=== PATIENT | male | born 2000 | race Caucasian/White ===

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

== ENCOUNTER 2019-05-25 18:11 | Emergency (ER) | payer BC, MEDICAID ==
--- NOTE | 2019-05-25 18:14 | EDM.PDOC ---
ED HPI GENERAL MEDICAL PROBLEM - General Stated Complaint: CHEST PRESSURE, AND ALSO RT LEG PAIN Time Seen by Provider: 05/25/19 18:13 Source of Information: Reports: Patient History Limitations: Reports: No Limitations - History of Present Illness INITIAL COMMENTS - FREE TEXT/NARRATIVE: HISTORY AND PHYSICAL: History of present illness: Patient is a 19-year-old male presenting to the emergency room for complaints of "chest pain". Patient states that he is "had chest pain on and off for about one week. Patient states his chest pain worsened today, however he does not have chest pain now. Patient denies aggravating or alleviating factors. Patient also mentions that he also has lateral muscle pain on the right leg that has been "on and off" for the past week. Patient ambulated to the ER without deficits. Patient denies any fever, chills, headache, change in vision, syncope or near syncope. Denies current chest pain, back pain, shortness of breath or cough. Denies any abdominal pain, nausea, vomiting, diarrhea, constipation or dysuria. Has not noted any blood in urine or stool. Patient has been eating and drinking appropriately. Review of systems: As per history of present illness and below otherwise all systems reviewed and negative. Past medical history: As per history of present illness and as reviewed below otherwise noncontributory. Surgical history: As per history of present illness and as reviewed below otherwise noncontributory. Social history: See social history for further information Family history: As per history of present illness and as reviewed below otherwise noncontributory. Physical exam: General: The well-nourished and well-developed 19-year-old male. Alert and oriented. Nontoxic in appearance and in no acute distress. Vital signs have been reviewed by me. HEENT: Atraumatic, normocephalic, pupils equal and reactive bilaterally, negative for conjunctival pallor or scleral icterus, mucous membranes moist, TMs normal bilaterally, throat clear, neck supple, nontender, trachea midline. No drooling or trismus noted. No meningeal signs. No hot potato voice noted. Lungs: Clear to auscultation, breath sounds equal bilaterally, chest nontender. Heart: S1S2, regular rate and rhythm without overt murmur Abdomen: Soft, nondistended, nontender. Negative for masses or hepatosplenomegaly. Negative for costovertebral tenderness. Skin: Intact, warm, dry. No lesions or rashes noted. Extremities: Atraumatic, moves all extremities per self without difficulty or deficits, negative for cords or calf pain. There is no erythema or edema to the right lower leg. Neurovascular unremarkable. Neuro: Awake, alert, oriented. Cranial nerves II through XII unremarkable. Cerebellum unremarkable. Motor and sensory unremarkable throughout. Exam nonfocal. Notes: Patient ambulated into the ER on his without deficits. There is no erythema or edema to the right lower extremity. Pain free at this time. His vital signs remain stable. We discussed the need for follow-up. Supportive care measures were reviewed and discussed. Voices understanding and is agreeable to plan of care. Denies any further questions or concerns at this time. Diagnostics: CXR, EKG Therapeutics: None Prescription: None Impression: Chest pain, nonspecific Plan: 1. Please use Tylenol and/or Ibuprofen as needed for pain and fever management. 2. Get plenty of Rest. Encourage fluids to prevent dehydration. 3. Please follow up with your primary care provider. Return to the ED as needed as discussed. Definitive disposition and diagnosis as appropriate pending reevaluation and review of above. Chest Pain Score (Numeric/FACES): 0 Right Lower Leg Pain Score (Numeric/FACES): 4 - Related Data Allergies Allergy/AdvReac Type Severity Reaction Status Date / Time No Known Allergies Allergy Verified 05/25/19 18:17 Home Meds: Home Meds buPROPion [Wellbutrin] 100 mg PO BID 03/30/18 [History] Divalproex Sodium 125 mg PO DAILY 07/09/18 [History] Past Medical History - Past Health History Medical/Surgical History: Denies Medical/Surgical History HEENT History: Reports: Impaired Vision Other HEENT History: wears glasses Cardiovascular History: Reports: None Respiratory History: Reports: None Gastrointestinal History: Reports: None Genitourinary History: Reports: None Musculoskeletal History: Reports: Fracture Neurological History: Reports: None Psychiatric History: Reports: Anxiety, Depression, Suicidal Ideation, Other ( See Below) Other Psychiatric History: 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 ED EXAM, GENERAL - Physical Exam Exam: See Below (See dictation) Course - Vital Signs Last Recorded V/S: Last Vital Signs Temp 96.0 F 05/25/19 18:15 Pulse 89 05/25/19 18:15 Resp 18 05/25/19 18:15 BP 149/84 H 05/25/19 18:15 Pulse Ox 95 05/25/19 18:15 - Orders/Labs/Meds Orders: Active Orders 24 hr Category Date Time Status EKG Documentation Completion [RC] STAT Care 05/25/19 18:14 Active Chest 2V [CR] Stat Exams 05/25/19 18:18 Ordered Departure - Departure Time of Disposition: 19:13 Disposition: Home, Self-Care 01 Clinical Impression: Nonspecific chest pain - Discharge Information Instructions: Nonspecific Chest Pain Referrals: PCP,Unknown [Primary Care Provider] - Additional Instructions: The following information is given to patients seen in the emergency department who are being discharged to home. This information is to outline your options for follow-up care. We provide all patients seen in our emergency department with a follow-up referral. The need for follow-up, as well as the timing and circumstances, are variable depending upon the specifics of your emergency department visit. If you don't have a primary care physician on staff, we will provide you with a referral. We always advise you to contact your personal physician following an emergency department visit to inform them of the circumstance of the visit and for follow-up with them and/or the need for any referrals to a consulting specialist. The emergency department will also refer you to a specialist when appropriate. This referral assures that you have the opportunity for follow-up care with a specialist. All of these measure are taken in an effort to provide you with optimal care, which includes your follow-up. Under all circumstances we always encourage you to contact your private physician who remains a resource for coordinating your care. When calling for follow-up care, please make the office aware that this follow-up is from your recent emergency room visit. If for any reason you are refused follow-up, please contact the [facility] Emergency Department at and asked to speak to the emergency department charge nurse. [facility] [address] [place] [address] [address] 1. Please use Tylenol and/or Ibuprofen as needed for pain and fever management. 2. Get plenty of Rest. Encourage fluids to prevent dehydration. 3. Please follow up with your primary care provider. Return to the ED as needed as discussed. - My Orders Last 24 Hours: My Active Orders 05/25/19 18:14 EKG Documentation Completion [RC] STAT 05/25/19 18:18 Chest 2V [CR] Stat - Assessment/Plan Last 24 Hours: My Active Orders 05/25/19 18:14 EKG Documentation Completion [RC] STAT 05/25/19 18:18 Chest 2V [CR] Stat
--- NOTE | 2019-05-25 19:13 | CR ---
INDICATION: chest tightness, rt leg pain CHEST, PA AND LATERAL Upright PA and lateral radiographs of the chest were performed. Comparison: No previous studies are currently available for comparison. The lungs appear clear and there are no pleural effusions. Heart size and pulmonary vasculature appear normal. Visualized bones show no significant findings. IMPRESSION: No acute intrathoracic abnormality identified. THERESA GAN MD [employer] Dictated by: Marcellus Gan MD @ 05/25/2019 19:11:44 (Electronically Signed)
[2019-05-25 19:20] VITALS: BP 161/88; PULSE 90
== END 2019-05-25 19:21 | disposition home or self-care (01) ==
LOC: MW.ED 18:11
DX: R07.9 Chest pain, unspecified (principal); E66.9 Obesity, unspecified; F32.9 Major depressive disorder, single episode, unspecified; Z68.42 Body mass index [BMI] 45.0-49.9, adult; Z79.899 Other long term (current) drug therapy
CPT/HCPCS: 71046; 71046-26; 93005; 99285-25

== ENCOUNTER 2020-12-20 21:09 | Emergency (ER) | payer BC ==
[2020-12-20] MEDS ORDERED: Ketorolac 15 MG/ML SDV IM ONE (21:18)
--- NOTE | 2020-12-20 21:41 | CR ---
Indication: Chest pain. Technique: AP portable view of the chest. Comparison: May 25, 2019. Findings: Heart is normal in size. The lungs are clear. No infiltrate, pleural effusion, or pneumothorax is identified. Impression: No acute cardiopulmonary process Dictated by Kari Ramos MD @ 12/20/2020 9:40:[address] Kari Ramos @ Dec 20 2020 9:40PM
[2020-12-20] MEDS ORDERED: Alum Hydrox/Mag Hydrox/Simeth 15 ML, Lidocaine 2% 5 ML PO ONE ×2 (21:43)
--- NOTE | 2020-12-20 21:57 | EDM.PDOC ---
ED HPI GENERAL MEDICAL PROBLEM - General Chief Complaint: Chest Pain Stated Complaint: CHEST PAIN, HIGH BP Time Seen by Provider: 12/20/20 21:17 - History of Present Illness INITIAL COMMENTS - FREE TEXT/NARRATIVE: CHIEF COMPLAINT(S): Chest pain HISTORY OF PRESENT ILLNESS: This is a 20-year-old man with a past medical history of obesity, depressive disorder, GERD who presents to the emergency department with chest pain. The patient states that he has been experiencing chest pain that was going on for approximately 1 week. He states that he was just seen by his primary care physician and started on blood pressure medications that he cannot recall and was told to do some exercise for which she has been doing this. He states that the pain is located in his left side of his chest and intermittent and is worsened after he eats. He describes the pain as sharp not any associated diaphoresis, nausea or vomiting. He denies any recent travel or recent surgery. He denies any street of DVT or PE. He denies any family history of early onset CAD, CHF or sudden onset at young age. He states that the pain seems to be exacerbated also when he walks. Stated he checked his blood pressure at home and it was elevated at 140 and now it is down to 120 so he was concerned about that also. He denies any shortness of breath or cough. He denies any fevers or chills. Denies any other symptoms. States that the pain resolves on its own. He denies any other aggravating factors. REVIEW OF SYSTEMS: Constitutional: Denies fever, chills. Eyes: Denies eye pain Ears, Nose, Mouth, & Throat: Denies earache Cardiovascular: For sharp chest pain respiratory: Denies shortness of breath Gastrointestinal: Denies Nausea, vomiting, diarrhea, hematochezia. Genitourinary: Denies hematuria Skin:Denies a rash MSK: Denies joint pain Neurological: Denies blurred vision, numbness, tingling, weakness Psychiatric: Denies depression PAST MEDICAL HISTORY: As per history of present illness and as reviewed below otherwise noncontributory. SURGICAL HISTORY: As per history of present illness and as reviewed below otherwise noncontributory. SOCIAL HISTORY: As per history of present illness and as reviewed below ot herwise noncontributory. FAMILY HISTORY: As per history of present illness and as reviewed below otherwise noncontributory. EXAMINATION OF ORGAN SYSTEMS/BODY AREAS: Constitutional: Blood pressure was 146/83, heart rate 69, respiratory rate 18 with an oxygen saturation 98% on room air. Temperature 36.1 General: Overall well-appearing young man who is in no acute distress Psychiatric: Appropriate mood and affect. Eyes: No scleral icterus or conjunctival erythema ENMT: Moist mucous membranes. No pharyngeal erythema Cardiovascular: Regular, rate, and rhythm. No gallops, murmurs, or rubs. B ilateral upper extremity pulses symmetric and intact. No peripheral edema. No JVD. Respiratory: Lungs clear to auscultation bilaterally. No wheezes, rales, or rhonchi. Gastrointestinal: Soft, non-tender, non-distended. Normoactive bowel sounds Genitourinary: No suprapubic tenderness Musculoskeletal: Normal range of motion. Skin: No lesions or abrasions. Neurological: Alert, GCS 15 MEDICAL DECISION MAKING AND COURSE IN THE ED WITH INTERPRETATION/REVIEW OF DIAGNOSTIC STUDIES: This is a 20-year-old man with a past medical history of reflux disease, depressive disorder and hypertension presents to the emergency department with intermittent left-sided chest pain which is exacerbated by eating. We did obtain screening EKG which did not reveal any acute signs of ischemia. Patient is low risk for ACS given his age and risk factors. Therefore no cardiac work-up will be obtained. We will provide the patient with Toradol and a GI cocktail. Obtain a chest x-ray. I do believe this is likely secondary to his reflux disease versus gastritis. The radiological images were viewed by myself along with reading the report from the radiologist. Chest x-ray does not reveal any acute cardiopulmonary process. On reevaluation I did discuss results with patient. I did discuss with him at this time that I would like him to continue his antacid at home and that he should continue with his exercise. I did provide the patient with psychiatry follow-up. He states that he already has a therapist. I did discuss that he should follow-up with primary care physician regarding his blood pressure and reflux symptoms. He is to return for any new or worsening symptoms. He was amenable discharge at this time and had no further questions DISPOSITION: The patient was discharged home in stable condition. The patient will follow up with his primary care physician within 3 to 5 days CONDITION: Fair PROCEDURES: None FINAL IMPRESSION(S)/DIAGNOSES: 1. Acute atypical chest pain likely secondary to reflux disease Tre Juarez M.D. chest Pain Score (Numeric/FACES): 5 - Related Data Allergies Allergy/AdvReac Type Severity Reaction Status Date / Time No Known Allergies Allergy Verified 12/20/20 21:16 Home Meds: Home Meds . 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 Endocrine/Metabolic History: Reports: Obesity/BMI 30+ Hematologic History: Reports: None Oncologic (Cancer) History: Reports: None Dermatologic History: Reports: None - Infectious Disease History Infectious Disease History: Reports: None - Past Surgical History Head Surgeries/Procedures: Reports: None Male Surgical History: Reports: None Social & Family History - Family History Family Medical History: No Pertinent Family History - Caffeine Use Caffeine Use: Reports: None ED ROS GENERAL - Review of Systems Review Of Systems: See Below ED EXAM, GENERAL - Physical Exam Exam: See Below Course - Vital Signs Last Recorded V/S: Last Vital Signs Temp 36.1 C 12/20/20 21:17 Pulse 67 12/20/20 22:31 Resp 18 12/20/20 22:31 BP 140/85 12/20/20 22:31 Pulse Ox 95 12/20/20 22:31 - Orders/Labs/Meds Meds: Medications Discontinued Medications Generic Name Dose Route Start Last Admin Trade Name Freq PRN Reason Stop Dose Admin Al Hydroxide/Mg Hydroxide 15 0 ml 12/20/20 21:43 12/20/20 21:56 ml/ Lidocaine HCl 5 ml PO 12/20/20 21:44 20 each ONETIME ONE Administration Ketorolac Tromethamine 15 mg 12/20/20 21:18 12/20/20 21:56 Ketorolac 15 Mg/Ml Sdv IM 12/20/20 21:19 15 mg ONETIME ONE Administration Departure - Departure Time of Disposition: 21:56 Disposition: Home, Self-Care 01 Condition: Fair Clinical Impression: Gastritis - Discharge Information *PRESCRIPTION DRUG MONITORING PROGRAM REVIEWED*: No *COPY OF PRESCRIPTION DRUG MONITORING REPORT IN PATIENT JIMMY: No Instructions: Gastritis, Adult, [id number], Nonspecific Chest Pain, Adult, [id number] Referrals: Casey Andres MD [Primary Care Provider] - Forms: ED Department Discharge Additional Instructions: You evaluate today an emergent basis. At this time your chest x-ray and your rhythm strip of your heart were normal. You are relatively low risk for any heart issues given your age. Given that the pain is exacerbated by eating I do believe this is likely secondary to reflux disease or peptic ulcer disease, or gastritis. I recommend that you continue taking your antacid and use Maalox as needed for pain relief. I do recommend that you follow-up with your primary care physician if he had further issues as you may need a endoscopy. If you have any worsening pain, worsening chest pain, passing out I would like you to return to the emergency department. [facility] [address] [place] [address] [place] [address] The patient is informed of any results of their evaluation and diagnostic workup and all questions are answered. They are given discharge instructions and return precautions. The patient is stable for discharge. The patient states they understand and agree with the plan and that they will return if their symptoms get worse or if they have any new concerns. The following information is given to patients seen in the emergency department who are being discharged to home. This information is to outline your options for follow-up care. We provide all patients seen in our emergency department with a follow-up referral. The need for follow-up, as well as the timing and circumstances, are variable depending upon the specifics of your emergency department visit. If you don't have a primary care physician on staff, we will provide you with a referral. We always advise you to contact your personal physician following an emergency department visit to inform them of the circumstance of the visit and for follow-up with them and/or the need for any referrals to a consulting specialist. The emergency department will also refer you to a specialist when appropriate. This referral assures that you have the opportunity for follow-up care with a specialist. All of these measure are taken in an effort to provide you with optimal care, which includes your follow-up. Under all circumstances we always encourage you to contact your private physician who remains a resource for coordinating your care. When calling for follow-up care, please make the office aware that this follow-up is from your recent emergency room visit. If for any reason you are refused follow-up, please contact the [facility] Emergency Department at and asked to speak to the emergency department charge nurse. Sepsis Event Note (ED) - Evaluation Sepsis Screening Result: No Definite Risk
[2020-12-20 22:32] VITALS: BP 140/85; PULSE 67
--- NOTE | 2020-12-21 05:59 | PCM.EKG ---
#1 Interpretation EKG Date: 12/20/20 Time: 21:12 Rhythm: NSR Rate (Beats/Min): 69 [place]: Normal P-Wave: Present QRS: Normal ST-T: Normal (T wave inversion III) QT: Normal Comparison: No Change (05-25-19) EKG Interpretation Comments: Sinus Rhythm
== END 2020-12-20 22:44 | disposition home or self-care (01) ==
LOC: MW.ED 21:09
DX: K29.70 Gastritis, unspecified, without bleeding (principal); E66.9 Obesity, unspecified; Z68.42 Body mass index [BMI] 45.0-49.9, adult
CPT/HCPCS: 71045; 93005; 96372; 99285; A9270; J1885; 99283

== ENCOUNTER 2021-09-24 17:15 | Emergency (ER) | payer BC ==
[2021-09-24] MEDS ORDERED: Alum Hydro/Mag Hydro/Simeth XS 15 ML, Metoclopramide 5 MG, Lidocaine 2% 5 ML PO ONE ×3 (17:27)
[2021-09-24 18:06] LABS: BLOOD UREA NITROGEN,BUN 16 mg/dL (7.0-18.0); CARBON DIOXIDE,CO2 28.4 mmol/L (21.0-32.0); CHLORIDE,CL 103 mmol/L (98-107); GLUCOSE RANDOM 94 mg/dL (74-106); POTASSIUM,K 3.9 mmol/L (3.5-5.1); SODIUM,NA 138 mmol/L (136-148)
[2021-09-24 19:22] VITALS: BP 138/65; PULSE 57
== END 2021-09-24 18:50 | disposition home or self-care (01) ==
LOC: MW.ED 17:15
DX: R07.9 Chest pain, unspecified (principal); E66.9 Obesity, unspecified; Z68.41 Body mass index [BMI] 40.0-44.9, adult
CPT/HCPCS: 36415; 71045; 80053; 84484; 85025; 93005; 93971; 99285; A9270

== ENCOUNTER 2021-10-09 18:47 | Emergency (ER) | payer BC ==
[2021-10-09 21:17] VITALS: BP 127/84; PULSE 72
== END 2021-10-09 21:22 | disposition home or self-care (01) ==
LOC: MW.ED 18:47
DX: R68.89 Other general symptoms and signs (principal); E66.9 Obesity, unspecified; Z20.822 Contact with and (suspected) exposure to COVID-19; Z68.41 Body mass index [BMI] 40.0-44.9, adult
CPT/HCPCS: 70450; 70450-26; 99284-25; U0002

== ENCOUNTER 2021-10-27 06:31 | Emergency (ER) | payer BC ==
[2021-10-27 06:45] VITALS: BP 150/108; PULSE 85
[2021-10-27 07:35] LABS: ACETAMINOPHEN <2.0 ug/mL; BLOOD UREA NITROGEN,BUN 14 mg/dL (7.0-18.0); CHLORIDE,CL 101 mmol/L (98-107); ESTIMATED GFR > 60.0 ml/min; GLUCOSE RANDOM 92 mg/dL (74-106); POTASSIUM,K 3.4 mmol/L (3.5-5.1); SODIUM,NA 139 mmol/L (136-148)
== END 2021-10-27 07:55 | disposition home or self-care (01) ==
LOC: MW.ED 06:31
DX: R20.0 Anesthesia of skin (principal); T50.905A Adverse effect of unspecified drugs, medicaments and biological substances, initial encounter; E66.9 Obesity, unspecified; Z68.41 Body mass index [BMI] 40.0-44.9, adult; Z79.899 Other long term (current) drug therapy
CPT/HCPCS: 36415; 80053; 80143; 85025; 99282; 99284

== ENCOUNTER 2021-10-30 13:51 | Emergency (ER) | payer BC ==
[2021-10-30] MEDS ORDERED: Sodium Chloride 0.9% 1,000 ML IV ONE (14:02)
[2021-10-30 16:00] LABS: ACETAMINOPHEN <2.0 ug/mL; BLOOD UREA NITROGEN,BUN 19 mg/dL (7.0-18.0); CARBON DIOXIDE,CO2 25.5 mmol/L (21.0-32.0); CHLORIDE,CL 103 mmol/L (98-107); ESTIMATED GFR > 60.0 ml/min; GLUCOSE RANDOM 97 mg/dL (74-106); SODIUM,NA 141 mmol/L (136-148)
[2021-10-30 16:11] LABS: CORONAVIRUS COVID-19 NAA NEGATIVE (NEGATIVE); INFLUENZA A NAA NEGATIVE (NEGATIVE); INFLUENZA B NAA NEGATIVE (NEGATIVE)
[2021-10-30 16:55] VITALS: BP 124/78; PULSE 79
== END 2021-10-30 16:47 | disposition home or self-care (01) ==
LOC: MW.ED 13:51
DX: R42 Dizziness and giddiness (principal); F41.9 Anxiety disorder, unspecified; F32.A Depression, unspecified; E66.9 Obesity, unspecified; Z68.41 Body mass index [BMI] 40.0-44.9, adult; Z79.899 Other long term (current) drug therapy; Z20.822 Contact with and (suspected) exposure to COVID-19
CPT/HCPCS: 0240U; 36415; 80053; 80143; 80179; 80305; 81003; 85025; 93005; 99284; 93010; 99282

== ENCOUNTER 2021-11-06 20:34 | Emergency (ER) | payer BC | END 2021-11-06 21:30 | disposition left against medical advice (07) | LOC: MW.ED 20:34 | DX: Z53.21 Procedure and treatment not carried out due to patient leaving prior to being seen by health care provider (principal) ==

== ENCOUNTER 2021-11-29 20:55 | Emergency (ER) | payer BC ==
[2021-11-29] MEDS ORDERED: Albuterol/Ipratropium 3.0-0.5 MG/3 ML Neb Soln NEB ONE (21:18)
[2021-11-29] MEDS ORDERED: Sodium Chloride 0.9% 1,000 ML IV ONE (21:18)
[2021-11-29] MEDS ORDERED: Ketorolac 30 MG/ML SDV IVPUSH ONE (21:19)
[2021-11-30 04:27] VITALS: BP 132/86; PULSE 96
== END 2021-11-29 23:10 | disposition home or self-care (01) ==
LOC: MW.ED 20:55
DX: J06.9 Acute upper respiratory infection, unspecified (principal); F12.90 Cannabis use, unspecified, uncomplicated; Z79.899 Other long term (current) drug therapy; Z86.16 Personal history of COVID-19
CPT/HCPCS: 71046; 93005; 94640; 96374; 99285; J1885; J7030; 93010; 99284; J7620-GY

== ENCOUNTER 2021-11-30 16:54 | Emergency (ER) | payer BC ==
[2021-11-30 19:16] LABS: BLOOD UREA NITROGEN,BUN 18 mg/dL (7.0-18.0); CARBON DIOXIDE,CO2 27.1 mmol/L (21.0-32.0); CHLORIDE,CL 104 mmol/L (98-107); GLUCOSE RANDOM 84 mg/dL (74-106); POTASSIUM,K 4.2 mmol/L (3.5-5.1); SODIUM,NA 143 mmol/L (136-148)
[2021-12-01 02:59] VITALS: BP 145/109; PULSE 98
== END 2021-11-30 20:18 | disposition home or self-care (01) ==
LOC: MW.ED 16:54
DX: M25.562 Pain in left knee (principal); E66.9 Obesity, unspecified; Z79.899 Other long term (current) drug therapy; Z68.41 Body mass index [BMI] 40.0-44.9, adult
CPT/HCPCS: 36415; 80053; 80305-QW; 81003; 85025; 99282; 99283

== ENCOUNTER 2021-12-22 05:27 | Emergency (ER) | payer BC ==
[2021-12-22 05:51] VITALS: PULSE 89
[2021-12-22 06:26] VITALS: BP 161/95
== END 2021-12-22 06:33 | disposition home or self-care (01) ==
LOC: MW.ED 05:27
DX: S89.92XA Unspecified injury of left lower leg, initial encounter (principal); E66.9 Obesity, unspecified; Z68.41 Body mass index [BMI] 40.0-44.9, adult; Z86.16 Personal history of COVID-19; Z79.899 Other long term (current) drug therapy; W18.30XA Fall on same level, unspecified, initial encounter
CPT/HCPCS: 73562-26-LT; 73562-LT; 99283-25

== ENCOUNTER 2022-12-17 17:02 | Emergency (ER) | payer BC ==
[2022-12-17] MEDS ORDERED: LORazepam 2 MG/ML SDV IM ONE (17:12)
[2022-12-17] MEDS ORDERED: Haloperidol Lactate 5 MG/ML SDV IM ONE (17:12)
[2022-12-17] MEDS ORDERED: LORazepam 2 MG/ML SDV ONE (17:15)
[2022-12-17] MEDS ORDERED: Haloperidol Lactate 5 MG/ML SDV ONE (17:15)
[2022-12-17 19:12] LABS: ACETAMINOPHEN <2.0 ug/mL; BLOOD UREA NITROGEN,BUN 14 mg/dL (7.0-18.0); CHLORIDE,CL 106 mmol/L (98-107); GLUCOSE RANDOM 107 mg/dL (74-106); POTASSIUM,K 3.2 mmol/L (3.5-5.1); SODIUM,NA 144 mmol/L (136-148)
[2022-12-17 19:14] LABS: ESTIMATED GFR 97 mL/min (>60)
[2022-12-18] MEDS ORDERED: Divalproex Sodium Delayed-Release 500 MG Tab.CR PO ONE (01:31)
[2022-12-18] MEDS ORDERED: buPROPion 150 MG Tab.ER PO ONE (01:31)
[2022-12-18 02:42] VITALS: BP 112/69; PULSE 80
== END 2022-12-18 02:43 | disposition home or self-care (01) ==
LOC: MW.ED 17:02
DX: F91.1 Conduct disorder, childhood-onset type (principal); E66.9 Obesity, unspecified; Z86.16 Personal history of COVID-19; Z20.822 Contact with and (suspected) exposure to COVID-19; Z68.35 Body mass index [BMI] 35.0-35.9, adult
CPT/HCPCS: 36415; 80053; 80143; 80179; 80305-QW; 80307; 83735; 84443; 85025; 93005; 93010; 96372; 99284; 99285-25; A9270-GY; J1630; J2060; U0002

== ENCOUNTER 2023-02-01 13:53 | Emergency (ER) | payer BC | END 2023-02-01 14:05 | disposition left against medical advice (07) | LOC: MW.ED 13:53 | DX: Z53.21 Procedure and treatment not carried out due to patient leaving prior to being seen by health care provider (principal) ==

== ENCOUNTER 2023-12-19 01:12 | Emergency (ER) | payer BC ==
[2023-12-19] MEDS: Ibuprofen 600 MG Tab PO ONE (02:38)
[2023-12-19 03:35] VITALS: BP 174/92; PULSE 76
[2023-12-19] MEDS: Cephalexin 500 MG Cap PO ONE (03:52)
== END 2023-12-19 04:01 | disposition home or self-care (01) ==
LOC: MW.ED 01:12
DX: M79.675 Pain in left toe(s) (principal); Z79.899 Other long term (current) drug therapy; Z75.8 Other problems related to medical facilities and other health care
CPT/HCPCS: 73630; 99283; A9270